=== PATIENT | male | born 1995 | race Caucasian/White ===

== ENCOUNTER 2018-11-07 10:05 | Emergency (ER) | payer SELFPAY ==
[~2018-11-07] VITALS: Ht 162.6 cm; Wt 69.5 kg
[2018-11-07 10:11] VITALS: BP 126/88
--- NOTE | 2018-11-07 10:17 | NUR ---
PT AMBULATES TO BED 2
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
[2018-11-07] MEDS ORDERED: IBUPROFEN 800 MG TAB PO ONE (10:45)
[2018-11-07 11:15] VITALS: BP 126/88
== END 2018-11-07 11:16 | disposition home or self-care (01) ==
LOC: MED 10:05
DX: S60.221A Contusion of right hand, initial encounter (principal); M25.531 Pain in right wrist; J45.909 Unspecified asthma, uncomplicated; Y04.0XXA Assault by unarmed brawl or fight, initial encounter; Y93.89 Activity, other specified; Y92.89 Other specified places as the place of occurrence of the external cause; Y99.8 Other external cause status
CPT/HCPCS: 29125; 73110; 73130; 99283; Q0092

== ENCOUNTER 2018-11-16 14:49 | Emergency (ER) | payer SELFPAY ==
[~2018-11-16] VITALS: Ht 165.1 cm; Wt 69.2 kg
[2018-11-16 15:00] VITALS: BP 138/96
--- NOTE | 2018-11-16 15:18 | NUR ---
PT AMBULATES TO BED 12
--- NOTE | 2018-11-16 15:26 | NUR ---
PATIENT PRESENTS TO ED WITH SEEN IN OUR ER X10 DAYS AGO ---PT STATES PAIN CONTINUES ADMITS SWELLING HAS IMPROVED ABLE TO MAKE A FIST +2 RADIAL PULSE <3 SEC CAP REFILL. DENIES N/V/D; SKIN IS PINK/WARM/DRY; AAOX4 WITH EVEN AND STEADY GAIT; LUNGS CLEAR BL; HR EVEN AND REGULAR; PT DENIES ANY FEVER, CP, SOB, OR COUGH AT THIS TIME; PATIENT STATES PAIN OF 7/10 AT THIS TIME; VSS; PATIENT POSITIONED FOR COMFORT; HOB ELEVATED; BEDRAILS UP X2; BED DOWN. ER MD MADE AWARE OF PT STATUS.
[2018-11-16 16:41] VITALS: BP 126/81
--- NOTE | 2018-11-16 16:41 | NUR ---
D/C INSTRUCTIONS AND RX NAPROSYN ALONG WITH CD OF X-RAY RESULTS GIVEN TO PT BY DR. MAGDALENOPatient discharged with v/s stable. Written and verbal after care instructions given and explained. Patient alert, oriented and verbalized understanding of instructions. Ambulatory with steady gait. All questions addressed prior to discharge. ID band removed. Patient advised to follow up with PMD. Rx of NAPROSYN given. Patient educated on indication of medication including possible reaction and side effects. Opportunity to ask questions provided and answered.
== END 2018-11-16 16:40 | disposition home or self-care (01) ==
LOC: MED 14:49
DX: S62.310D Displaced fracture of base of second metacarpal bone, right hand, subsequent encounter for fracture with routine healing (principal); J45.909 Unspecified asthma, uncomplicated; F17.210 Nicotine dependence, cigarettes, uncomplicated; X58.XXXD Exposure to other specified factors, subsequent encounter
CPT/HCPCS: 99283